=== PATIENT | female | born 1955 | race Caucasian/White ===

== ENCOUNTER 2019-03-14 10:30 | Inpatient (IN) | payer OTHER ==
--- NOTE | 2019-03-13 17:45 | NUR ---
ADMITTING DEPARTMENT WALKED PT OVER FROM ADMITTING. PT AMBULATING WITH CANE WITH SUCTION CIRCLES ON BOTTOM OF CANE. STARTED TO SIT DOWN IN BLACK CHAIR AND BECAME UNSTEADY WITH CANE AND CHAIR AND SLOWLY DROPPED TO THE FLOOR. LANDED ON HER BUTTOCKS. DID NOT HIT HEAD OR REPORT ANY PAIN OR INJURY. ASSISTED PT TO STANDING POSITION AND ASSIST TO SIT DOWN ON CHAIR. CONTINUES TO DENY PAIN IN LEGS OR BACK. CALL TO [facility] IN OR. SHE WILL ALERT DR MCKEON OF EVENT. PT HERE FOR PRE TESTING AND SIGNING CONSENTS. USE OF Koogame # [id number] FOR INTERPRETATION. INSTRUCTED PT TO ARRIVE AT 1100 TOMORROW MORNING FOR SURGERY. NPO AFTER MIDNIGHT. TO TAKE ATENOLOL WITH SIP OF WATER BEFORE COMING TO HOSPITAL. PT VERBALIZED UNDERSTANDING. CONSENTS REVIEWED WITH TIPPING MACHINE OPERATOR AND PT VERBALIZES UNDERSTANDING OF PROCEDURE. ALSO BLOOD CONSENT REVIEWED AND SIGNED. ORDERS IN COMPUTER FOR TYPE AND SCREEN AND PRE TESTING. PT TAKEN TO LAB VIA WHEELCHAIR AT THIS TIME FOR SAFETY.
[2019-03-13 18:42] LABS: BASOPHIL % 0.4 % (0-2); PLATELET COUNT 260 x10^3mcL (130-400)
[2019-03-13 18:43] LABS: UA SPECIFIC GRAVITY 1.015 (1.005-1.035); microscopic required? YES; urine erythrocyte 1+ (NEGATIVE)
[2019-03-13 18:43] LABS: RED CELL DISTRIBUTION WIDTH 15.2 % (11.5-14.5)
[2019-03-13 18:47] LABS: ALBUMIN 3.8 g/dL (3.4-5.0); ALKALINE PHOSPHATASE 110 U/L (46-116); ALT/SGPT 23 U/L (14-59); AST/SGOT 14 U/L (15-37); BILIRUBIN TOTAL 0.3 mg/dL (0.20-1.00); CALCIUM 9.2 mg/dL (8.5-10.1); CARBON DIOXIDE 27.1 mmol/L (21-32); CHLORIDE SERUM 104 mmol/L (98-107); CREATININE SERUM 0.7 mg/dL (0.6-1.0); GFR1 > 60 mL/min; GLUCOSE SERUM 99 mg/dL (74-106); POTASSIUM SERUM 3.6 mmol/L (3.5-5.1); SODIUM SERUM 141 mmol/L (136-145); TOTAL PROTEIN, SERUM 7.7 g/dL (6.4-8.2)
[~2019-03-14] VITALS: Ht 147.3 cm; Wt 81.6 kg
[2019-03-14 11:30] VITALS: BP 151/90
[2019-03-14] MEDS ORDERED: ATENOLOL50 MG PO (12:26)
[2019-03-14] MEDS ORDERED: LIPITOR40 MG PO (12:26)
[2019-03-14] MEDS ORDERED: NOR5 PO (12:27)
[2019-03-14] MEDS ORDERED: GLU500 (12:27)
[2019-03-14 12:55] VITALS: BP 151/90
--- NOTE | 2019-03-14 19:40 | NUR ---
RECEIVED PT VIA [employer] FROM O/R, ACCOMPANIED BY RN AND PT'S FAMILY MEMBERS. PT A/A/O X 4, CALM, COOPERATIVE. DENIES CHEST PAIN OR DISCOMFORT AT THIS TIME. NO ACUTE RESPIRATORY DISTRESS NOTED. PT ON F/C 16FR, INSTALLED 03/14/19, DRAINING CLEAR YELLOW URINE. S/P RTKR 03/14/19, R KNEE SURGICAL WOUND W/ SUTURES, DERMABOND, MEPELEX, CHANEL WRAP, CDI; POLAR MACHINE W/ ICE IN PLACE; PT USES CANE @ HOME AT BASELINE; RLE +C/S/M; FALL RISK PROTOCOL IN PLACE. IV SITE LW 20G, CDI. ORIENTED PT TO ROOM, BED CONTROLS, CALL LIGHT SYSTEM. SIDE RAILS UP X 2, BED IN LOW POSITION. WILL ENDORSE TO YANCY DIAZ.
--- NOTE | 2019-03-14 20:00 | NUR ---
PATIENT RESTING THIS TIME WITH NO C/O POST OPERATIVE PAIN, FAMILY MEMBERS AT BEDSIDE. NEW ORDERS FROM DR MCKEON CARRIED OUT, STARTED WITH IV NS INFUSING AT 80ML/HR, DRESSING TO RT KNEE CDI. WILL CONTINUE TO MONITOR. CALL LIGHT WITHIN REACH.
--- NOTE | 2019-03-15 01:06 | NUR ---
APPEAS SLEEPING WITH EYS CLOSED. NO INDICATION OF PAIN AND DISCOMFORT NOTED. WILL CONTINUE TO MONITOR.
--- NOTE | 2019-03-15 05:05 | NUR ---
CHECKED AT INTERVALS FOR NEEDS AND SAFETY. DENIES POST OPERATIVE PAIN THE ENTIRE SHIFT. ALL NEEDS ATTENDED.
[2019-03-15 05:58] VITALS: BP 113/60
[2019-03-15 06:15] LABS: CALCIUM 8.2 mg/dL (8.5-10.1); CARBON DIOXIDE 30.3 mmol/L (21-32); CHLORIDE SERUM 105 mmol/L (98-107); CREATININE SERUM 0.6 mg/dL (0.6-1.0); GFR1 > 60 mL/min; GLUCOSE SERUM 110 mg/dL (74-106); POTASSIUM SERUM 4.3 mmol/L (3.5-5.1); SODIUM SERUM 141 mmol/L (136-145)
[2019-03-15 06:16] LABS: BASOPHIL % 0.3 % (0-2); PLATELET COUNT 224 x10^3mcL (130-400)
[2019-03-15 07:14] LABS: RED CELL DISTRIBUTION WIDTH 15.5 % (11.5-14.5)
[2019-03-15] MEDS ORDERED: ACETAMINOPHEN-H1 TA1 PO (07:25)
[2019-03-15] MEDS ORDERED: COL100 PO (07:25)
[2019-03-15] MEDS ORDERED: ECO81 PO (07:25)
[2019-03-15 07:31] VITALS: BP 105/50
--- NOTE | 2019-03-15 08:11 | NUR ---
HANDOFF REPORT RECEIVED. PATIENT AWAKE WITH POLAR MACHINE IN USE. REFILLED WITH ICE. DENIES ANY PAIN AT THIS TIME. O2 SAT AT 94%. INSTRUCTED USE OF INCENTIVE SPIROETER : 97%. AWAITING PT EVAL.
--- NOTE | 2019-03-15 09:36 | NUR ---
AMBULATED WITH PT WITH WALKER. WELL TOLERATED. DENIES ANY DISCOMFORT. PERFORMS IS WELL TO 2,000 LEVEL. SPOUSE AT BEDSIDE.
--- NOTE | 2019-03-15 11:27 | NUR ---
AMBULATING AT THIS TIME. NOT IN ANY DISTRESS.
[2019-03-15 12:25] VITALS: BP 105/50
--- NOTE | 2019-03-15 13:10 | NUR ---
JULES CATHETER REMOVED. ENCOURAGED TO DRINK 2 CUPS OF WATER.
--- NOTE | 2019-03-15 14:14 | NUR ---
DISCHARGE TEACHINGS REVIEWED WITH PATIENT AND FAMILY. HEP LOCK REMOVED. POLAR ICE CUBE DISCONTINUED. OKAY TO USE ICE IN ZIPLOCK AT HOME. VOIDED AFTER JULES REMOVAL. WHEELED OFF THE FLOOR BY GABRIELE WHITING.
== END 2019-03-15 13:58 | disposition home or self-care (01) | DRG 302 ==
LOC: DU 10:30 → MU 20:30
PROVIDERS: ADMIT Orthopaedic Surgery
PROC: 0SRC069 Replacement of Right Knee Joint with Oxidized Zirconium on Polyethylene Synthetic Substitute, Cemented, Open Approach (ICD-10-PCS; principal; 2019-03-14 13:30)
DX: M17.11 Unilateral primary osteoarthritis, right knee (principal); E11.9 Type 2 diabetes mellitus without complications; E66.9 Obesity, unspecified; Z68.37 Body mass index [BMI] 37.0-37.9, adult; I10 Essential (primary) hypertension; E78.5 Hyperlipidemia, unspecified
CPT/HCPCS: C1713; C1776; G0378; J0690; J1885; J2250; J2270; J2704; J3010; J3490; J7030; J7120; Q0092

== ENCOUNTER 2019-07-18 08:03 | Inpatient (IN) | payer OTHER ==
[~2019-07-18] VITALS: Ht 147.3 cm; Wt 79.8 kg
[~2019-07-18 08:03] MED LIST: ACETAMINOPHEN-H1 TA1 PO; ATENOLOL50 MG PO; COL100 PO; ECO81 PO; GLU500; LIPITOR40 MG PO; NOR5 PO
[2019-07-18 08:14] VITALS: BP 138/77
[2019-07-18 21:01] VITALS: Ht 147.3 cm; Wt 79.8 kg
[2019-07-18 22:06] VITALS: BP 115/53
[2019-07-19 06:08] VITALS: BP 109/58
[2019-07-19 06:32] LABS: BASOPHIL % 0.2 % (0-2); PLATELET COUNT 220 x10^3mcL (130-400)
[2019-07-19 06:48] LABS: RED CELL DISTRIBUTION WIDTH 18.9 % (11.5-14.5)
[2019-07-19 07:06] LABS: CARBON DIOXIDE 29.4 mmol/L (21-32); CHLORIDE SERUM 98 mmol/L (98-107); CREATININE SERUM 0.7 mg/dL (0.6-1.0); GFR1 > 60 mL/min; GLUCOSE SERUM 110 mg/dL (74-106); SODIUM SERUM 133 mmol/L (136-145)
[2019-07-19 08:45] VITALS: BP 118/61
[2019-07-19 14:08] VITALS: BP 118/61
== END 2019-07-19 14:30 | disposition home or self-care (01) | DRG 302 ==
LOC: MU 08:03 → DU 10:30 → MU 15:45
PROVIDERS: ADMIT Orthopaedic Surgery
PROC: 0SRD0J9 Replacement of Left Knee Joint with Synthetic Substitute, Cemented, Open Approach (ICD-10-PCS; principal; 2019-07-18 10:30)
DX: M17.12 Unilateral primary osteoarthritis, left knee (principal)
CPT/HCPCS: 97116-GP; 97530-GP; G0378; J0690; J1885; J2270; J2274; J2704; J3490; J7030; Q0092